=== PATIENT | male | born 1960 | race Caucasian/White ===

== ENCOUNTER 2018-11-22 23:39 | Emergency (ER) | payer OTHER ==
[2018-11-23] MEDS ORDERED: MORPHINE SULFATE 4 MG INJ IM ONE (01:10)
--- NOTE | 2018-11-23 01:19 | ERPHSYRPT ---
- History of Present Illness Time Seen by Provider: 11/23/18 01:12 Source: patient Exam Limitations: no limitations Patient Subjective Stated Complaint: PT STATES HE WAS WALKING DOG, DOG STARTED TRYING TO PLAY AND PT GOT TRIPPED UP, TWISTED LEFT ANKLE IN HOLE. C/O LEFT ANKLE PAIN Triage Nursing Assessment: PINK/WARM/DRY, RESP EASY, A&OX4, PT ABLE TO BEAR MINIMAL WEIGHT TO LEFT LEG WITH INTENSE PAIN. LEFT ANKLE SWOLLEN Physician History: 58-year-old white male arrives with complaint of pain in his left ankle symptoms since this evening. Patient states he stepped in a hole while walking his dog he has pain in his left ankle. Past medical history includes diabetes type 2, COPD, hypercholesterolemia, high blood pressure. Past surgical history is negative. Method of Injury: other (stepped in a hole and twisted left ankle), twisted Occurred: this evening Quality: constant Severity of Pain-Max: moderate Severity of Pain-Current: moderate Lower Extremities Pain: ankle: left Modifying Factors: Improves With: nothing Allergies/Adverse Reactions: No Known Drug Allergies Allergy (Unverified 11/22/18 23:57) Home Medications: Budesonide/Formoterol Fumarate [Symbicort 160-4.5 Mcg Inhaler] 1 puff IN DAILY 11/22/18 [History] Gabapentin 600 mg PO TID 11/22/18 [History] Lisinopril/Hydrochlorothiazide [Lisinopril-Hctz 20-25 mg Tab] 1 tab PO DAILY [History] Metformin HCl [Glucophage] 1,000 mg PO BID 11/22/18 [History] Simvastatin 20 mg PO DAILY 11/22/18 [History] Trazodone HCl 150 mg PO HS 11/22/18 [History] glipiZIDE [Glipizide] 5 mg PO BID 11/22/18 [History] Hx Tetanus, Diphtheria Vaccination/Date Given: No Hx Influenza Vaccination/Date Given: No Hx Pneumococcal Vaccination/Date Given: No Immunizations Up to Date: No - Review of Systems Constitutional: No Fever, No Chills Eyes: No Symptoms Ears, Nose, & Throat: No Symptoms Respiratory: No Cough, No Dyspnea Cardiac: No Chest Pain, No Edema, No Syncope Abdominal/Gastrointestinal: No Abdominal Pain, No Nausea, No Vomiting, No Diarrhea Genitourinary Symptoms: No Dysuria Musculoskeletal: Other (left ankle pain and swelling) Skin: No Rash Neurological: No Dizziness, No Focal Weakness, No Sensory Changes Psychological: No Symptoms Endocrine: No Symptoms All Other Systems: Reviewed and Negative - Past Medical History Pertinent Past Medical History: Yes Cardiac History: High Cholesterol, Hypertension Respiratory History: COPD Endocrine Medical History: Diabetes Type II - Past Surgical History Past Surgical History: No - Social History Smoking Status: Never smoker Exposure to second hand smoke: Yes Drug Use: none Patient Lives Alone: No - Nursing Vital Signs Nursing Vital Signs: Initial Vital Signs Temperature 97.8 F 11/23/18 00:01 Pulse Rate 78 11/23/18 00:01 Respiratory Rate 16 11/23/18 00:01 Blood Pressure 135/96 11/23/18 00:01 O2 Sat by Pulse Oximetry 96 11/23/18 00:01 Pain Scale Pain Intensity 10 - Physical Exam General Appearance: mild distress, alert Eyes, Ears, Nose, Throat Exam: moist mucous membranes Neck Exam: non-tender, supple Cardiovascular/Respiratory Exam: chest non-tender, normal breath sounds, regular rate/rhythm, no respiratory distress Gastrointestinal/Abdominal Exam: non-tender, guarding Back Exam: normal inspection, No vertebral tenderness Hips Exam: bilateral: non-tender, normal inspection, normal range of motion, no evidence of injury Legs Exam: bilateral leg: non-tender, normal inspection, normal range of motion , no evidence of injury Knees Exam: bilateral knee: non-tender, normal inspection, normal range of motion, no evidence of injury Ankle Exam: right ankle: non-tender, normal inspection, normal range of motion, no evidence of injury, left ankle: bone tenderness, soft tissue tenderness, swelling, other (left ankle moderate edema. Tenderness with palpation laterally , medially, posteriorly. Decreased range of motion left ankle secondary to pain , left dorsal pedal, posterior tibial pulses intact 2 over 4.good capillary refill all toes sensation intact all toes.) Foot Exam: bilateral foot: non-tender, normal inspection, normal range of motion , no evidence of injury DTR - Lower Extremities Exam: ankle (R): 2+, ankle (L): 2+ Neuro/Tendon Exam: normal sensation, normal motor functions Mental Status Exam: alert, oriented x 3, cooperative Skin Exam: normal color SpO2 Interpretation: normal (96%) SpO2: 96 - Course Nursing assessment & vital signs reviewed: Yes - Radiology Exams Left Ankle X-ray Interpretation: Interpreted by me (fractured distal left fibula, fracture left posterior distal tibia.) Ordered Tests: Active Orders 24 hr Category Date Time Status Crutches STAT Care 11/23/18 01:11 Active Splint STAT Care 11/23/18 01:11 Active ANKLE (3 VIEWS) Stat Exams 11/23/18 00:40 Taken Medication Summary Discontinued Medications Generic Name Dose Route Start Last Admin Trade Name Leopoldo PRN Reason Stop Dose Admin Morphine Sulfate 4 mg 11/23/18 01:10 Morphine Sulfate 4 Mg Inj IM 11/23/18 01:11 STAT ONE - Progress Progress: improved Progress Note: 11/23/18 01:17 58-year-old white male arrives with complaint of pain and swelling of his left ankle for approximately one and a half hours. Patient states he stepped in a hole twisting his left ankle he has pain laterally, medially and posterior to the left ankle. He has moderate edema. He has good capillary refill to all toes decreased range of motion to the left ankle secondary to pain left posterior tibial, posterior tibial pulses are intact 2 over 4. Sensation is intact to all toes. X-ray of the left ankle (my reading) fracture left distal fibula, fracture left distal posterior tibia. Ankle does not appear to be displaced. Will go ahead and have nurses apply a sugar tong and posterior splint place patient on crutches patient is given morphine 4 mg IM for pain will send patient home with Lorado for pain patient has been of requested follow-up with [facility] orthopedic bone and joint clinic tomorrow morning. He is to elevate his left ankle ice his left ankle crutches no weight bearing. . - Departure Departure Disposition: Home Clinical Impression: fracture left posterior distal tibia Fracture of fibula, distal, left, closed Qualifiers: Encounter type: initial encounter Fracture morphology: unspecified fracture morphology Qualified Code(s): S82.832A - Other fracture of upper and lower end of left fibula, initial encounter for closed fracture Condition: Fair Critical Care Time: No Referrals: JOSE CARLOS ROSS, [employer] [Primary Care Provider] - Instructions: Ankle Fracture (DC) Additional Instructions: Return home. Ice and elevate your left ankle 24-48 hours. Crutches no weight bearing. Lorado as prescribed. Follow-up with [facility] orthopedics bone and joint clinic tomorrow morning. Return for acute distress or for severe symptoms. Prescriptions: Hydrocodone/APAP 5-325 Tab^^^ [Lorado 5-325 Tablet^^^] 1 tab PO Q4HPRN PRN #12 tablet MDD 6 PRN Reason: left ankle pain
[2018-11-23] MEDS ORDERED: MORPHINE SULFATE 4 MG INJ ONE (02:03)
[2018-11-23 02:33] VITALS: BP 137/62; PULSE 72; O2SAT 97
--- NOTE | 2018-11-23 08:56 | XRAY ---
Indication: Pain following fall. Comparison: None 3 views of the left ankle demonstrates nondisplaced lateral malleolus oblique fracture and smaller nondisplaced posterior malleolus fracture with soft tissue swelling. Incidental cuboid accessory ossicle. No other bony, articular, or soft tissue abnormalities.
== END 2018-11-23 02:42 | disposition home or self-care (01) ==
LOC: ED 23:39
DX: S82.302A Unspecified fracture of lower end of left tibia, initial encounter for closed fracture (principal); X50.1XXA Overexertion from prolonged static or awkward postures, initial encounter; Y93.K1 Activity, walking an animal; S82.832A Other fracture of upper and lower end of left fibula, initial encounter for closed fracture; M79.605 Pain in left leg; M25.472 Effusion, left ankle; E11.9 Type 2 diabetes mellitus without complications; Z79.4 Long term (current) use of insulin; J44.9 Chronic obstructive pulmonary disease, unspecified; E78.00 Pure hypercholesterolemia, unspecified; I10 Essential (primary) hypertension; Z79.899 Other long term (current) drug therapy
CPT/HCPCS: 29515; 73610; 96372; 99284; J2270

== ENCOUNTER 2020-10-27 09:55 | Emergency (ER) | payer OTHER ==
[2020-10-27] MEDS ORDERED: XYLOCAINE 1% HCL 20 ML MDV IJ ONE (09:56)
[2020-10-27] MEDS ORDERED: Rocephin 1000 MG INJ IM ONE (10:08)
[2020-10-27 10:10] VITALS: BP 147/101; PULSE 92; O2SAT 96
[2020-10-27] MEDS ORDERED: Rocephin 1000 MG INJ ONE (10:11)
[2020-10-27] MEDS ORDERED: PEROXIDE 3% ONE (10:18)
[2020-10-27] MEDS ORDERED: BACIGUENT PACKET ONE (10:18)
--- NOTE | 2020-10-27 10:18 | ERPHSYRPT ---
- History of Present Illness Time Seen by Provider: 10/27/20 10:13 Source: patient Exam Limitations: no limitations Patient Subjective Stated Complaint: Pt began with an unknown spot (possible spider bite) to the base of the back of his head approx 10 days ago and pt has b een squeezing blood and puss out of it, open wound is approx 3 cm wide and the swollen reddened area is approx 10 cm wide Triage Nursing Assessment: Pt was brought to the ER by his neighbor, hypertensive, wound is draining, area is open and swollen, 3 cm open area and 10 cm total wide swollen and red area Physician History: Pt began with an unknown spot (possible spider bite) to the base of the back of his head approx 10 days ago and pt has been squeezing blood and puss out of it, open wound is approx 3 cm wide and the swollen reddened area is approx 10 cm wide Pt was brought to the ER by his neighbor, hypertensive, wound is draining, area is open and swollen, 3 cm open area and 10 cm total wide swollen and red area Denies fever, chills, no other area of wound Timing/Duration: day(s) (ten days) Severity: moderate Location: scalp Possible Causes: no cause identified Modifying Factors: Improves With: scratching Associated Symptoms: denies symptoms Allergies/Adverse Reactions: No Known Drug Allergies Allergy (Verified 10/27/20 10:10) Home Medications: Budesonide/Formoterol Fumarate [Symbicort 160-4.5 Mcg Inhaler] 1 puff IN DAILY 11/22/18 [History] Gabapentin 600 mg PO TID 11/22/18 [History] Lisinopril/Hydrochlorothiazide [Lisinopril-Hctz 20-25 mg Tab] 1 tab PO DAILY 11/22/18 [History] Metformin HCl [Glucophage] 1,000 mg PO BID 11/22/18 [History] Simvastatin 20 mg PO DAILY 11/22/18 [History] Trazodone HCl 150 mg PO HS 11/22/18 [History] glipiZIDE [Glipizide] 5 mg PO BID 11/22/18 [History] Hx Tetanus, Diphtheria Vaccination/Date Given: No Hx Influenza Vaccination/Date Given: No Hx Pneumococcal Vaccination/Date Given: No Travel Risk - International Travel Have you traveled outside of the country in past 3 weeks: No - Coronavirus Screening Are you exhibiting any of the following symptoms?: No Close contact with a COVID-19 positive Pt in past 14-21 Days: No - Review of Systems Constitutional: No Fever, No Chills Eyes: No Symptoms Ears, Nose, & Throat: No Symptoms Respiratory: No Cough, No Dyspnea Cardiac: No Chest Pain, No Edema, No Syncope Abdominal/Gastrointestinal: No Abdominal Pain, No Nausea, No Vomiting, No Diarrhea Genitourinary Symptoms: No Dysuria Musculoskeletal: No Back Pain, No Neck Pain Skin: Cellulitis, No Rash Neurological: No Dizziness, No Focal Weakness, No Sensory Changes Psychological: No Symptoms Endocrine: No Symptoms All Other Systems: Reviewed and Negative - Past Medical History Pertinent Past Medical History: Yes Cardiac History: High Cholesterol, Hypertension Respiratory History: COPD Endocrine Medical History: Diabetes Type II - Past Surgical History Past Surgical History: No - Social History Smoking Status: Never smoker Exposure to second hand smoke: Yes Drug Use: none Patient Lives Alone: Yes - Nursing Vital Signs Nursing Vital Signs: Initial Vital Signs Temperature 97.7 F 10/27/20 09:57 Pulse Rate 92 H 10/27/20 09:57 Blood Pressure 147/101 10/27/20 09:57 O2 Sat by Pulse Oximetry 96 10/27/20 09:57 Pain Scale Pain Intensity 8 - Physical Exam General Appearance: no apparent distress, alert Eye Exam: PERRL/EOMI, eyes nml inspection Ears, Nose, Throat Exam: normal ENT inspection, pharynx normal, moist mucous membranes Neck Exam: normal inspection, non-tender, supple, full range of motion Respiratory Exam: normal breath sounds, lungs clear, No respiratory distress Cardiovascular Exam: regular rate/rhythm, normal heart sounds Gastrointestinal/Abdomen Exam: soft, mass, No tenderness Back Exam: normal inspection, normal range of motion, No CVA tenderness, No vertebral tenderness Extremity Exam: normal inspection, normal range of motion Neurologic Exam: alert, oriented x 3, cooperative, normal mood/affect, sensation nml, No motor deficits Skin Exam: normal color, warm, dry, other (abscess at base of posterior scalp. open, purulent discharge) Lymphatic Exam: adenopathy (scalp) SpO2 Interpretation: normal SpO2: 96 O2 Delivery: Room Air - Course Nursing assessment & vital signs reviewed: Yes Ordered Tests: Active Orders 24 hr Category Date Time Status Wound Care STAT Care 10/27/20 10:09 Active Medication Summary Discontinued Medications Generic Name Dose Route Start Last Admin Trade Name Leopoldo PRN Reason Stop Dose Admin Ceftriaxone Sodium 1,000 mg 10/27/20 10:08 Rocephin 1000 Mg Inj IM 10/27/20 10:09 STAT ONE - Progress Progress: unchanged Counseled pt/family regarding: diagnosis, need for follow-up (with surgeon) - Departure Departure Disposition: Home Clinical Impression: Abscess of scalp Condition: Stable Critical Care Time: No Referrals: JOSE CARLOS ROSS NP [Primary Care Provider] - ZEE HARP MD [ASSOCIATE STAFF] - Instructions: Wound Infection, Skin Abscess Additional Instructions: Follow up with surgeon. Discharge/Care Plan ZENAIDA DANIELLE was seen on 10/27/20 in the Emergency Room. The patient was counseled regarding Diagnosis,Lab results, Imaging studies, need for follow up and when to return to the Emergency Room. Prescriptions given: Discharge Note I have spoken with the patient and/or caregivers. I have explained the patient's condition, diagnosis and treatment plan based on the information available to me at this time. I have answered the patient's and/or caregiver's questions and addressed any concerns. The patient and/or caregivers have as good understanding of the patient's diagnosis, condition and treatment plan as can be expected at this point. The vital signs have been stable. The patient's condition is stable and appropriate for discharge from the emergency department. The patient will pursue further outpatient evaluation with the primary care physician or other designated or consulting physician as outlined in the discharge instructions. The patient and/or caregivers are agreeable to this plan of care and follow-up instructions have been explained in detail. The patient and/or caregivers have received these instruction. The patient/and or caregivers are aware that any significant change in condition or worsening of symptoms should prompt an immediate return to this or the closest emergency department or call 911. Prescriptions: Levofloxacin [Levaquin 500 MG Tablet] 500 mg PO QAM #10 tablet
== END 2020-10-27 10:38 | disposition home or self-care (01) ==
LOC: ED 09:55
DX: L02.811 Cutaneous abscess of head [any part, except face] (principal)
CPT/HCPCS: 96372; 99283; J0696; A9270-GY

== ENCOUNTER 2022-03-01 09:43 | Emergency (ER) | payer OTHER ==
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
[2022-03-01] MEDS ORDERED: Adacel Vial IM ONE ×2 (10:48→10:51)
[2022-03-01 10:52] LABS: Absolute Neutrophil Ct (ANC) 8.47 x10^3/uL (1.4-6.9); Basophil (Absolute #) 0.06 x10^3/uL (0-0.4); Eosinophil % 3.6 % (0.00-5.0); Hematocrit 41.4 % (42-50); Hemoglobin 13.4 g/dL (12.5-18.0); Lymphocyte (Absolute #) 1.63 x10^3/uL (1.0-4.6); Lymphocytes % 14.5 % (24.0-44.0); Mean Cell Volume 95.2 fL (78-100); Mean Corpuscular Hemoglobin 30.8 pg (26-32); Mean Corpuscular Hgb Concent. 32.4 g/dL (32-36); Mean Platelet Volume 8.9 fL (7.5-11.0); Monocyte (Absolute #) 0.58 x10^3/uL (0.0-1.3); Monocytes % 5.2 % (0.0-12.0); Neutrophil % 75.6 % (36.0-66.0); Platelet Count 269 x10^3/uL (150-450); Red Blood Count 4.35 x10^6/uL (4.1-5.6); Red Cell Distribution Width 12.9 % (11.5-14.0); White Blood Count 11.2 x10^3/uL (4.0-10.5)
[2022-03-01 11:07] LABS: ALBUMIN 3.7 g/dL (3.5-5.0); ALKALINE PHOSPHATASE 180 U/L (38-126); ANION GAP 12.6 MEQ/L (5-15); BLOOD UREA NITROGEN 12 mg/dL (9-20); CHLORIDE 100 mmol/L (98-107); Calcium 8.7 mg/dL (8.4-10.2); Carbon Dioxide 28 mmol/L (22-30); Creatinine 1 0.65 mg/dL (0.66-1.25); EST GLOMERULAR FILTRATION RATE > 60.0 ML/MIN; Glucose 169 mg/dL (74-106); Potassium 4.2 mmol/L (3.5-5.1); SGOT/AST 22 U/L (17-59); SGPT/ALT 20 U/L (0-50); SODIUM 137 mmol/L (137-145); Total Protein 7.1 g/dL (6.3-8.2)
[2022-03-01] MEDS ORDERED: Rocephin 1000 MG INJ IM ONE (11:23)
[2022-03-01] MEDS ORDERED: XYLOCAINE 1% HCL 20 ML MDV ONE (11:24)
[2022-03-01] MEDS ORDERED: Rocephin 1000 MG INJ ONE (11:24)
[2022-03-01 11:37] VITALS: BP 160/110; PULSE 93
[2022-03-01 12:05] VITALS: O2SAT 98
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
== END 2022-03-01 11:37 | disposition home or self-care (01) ==
LOC: ED 09:43
DX: L03.116 Cellulitis of left lower limb (principal); Z91.19 Patient's noncompliance with other medical treatment and regimen; I10 Essential (primary) hypertension; S80.212A Abrasion, left knee, initial encounter; V18.0XXA Pedal cycle driver injured in noncollision transport accident in nontraffic accident, initial encounter; Y93.55 Activity, bike riding; E11.42 Type 2 diabetes mellitus with diabetic polyneuropathy; E78.5 Hyperlipidemia, unspecified; J44.9 Chronic obstructive pulmonary disease, unspecified; Z79.84 Long term (current) use of oral hypoglycemic drugs; Z79.899 Other long term (current) drug therapy; Z28.310 Unvaccinated for COVID-19
CPT/HCPCS: 36415; 73562; 80053; 83605; 85025; 90471; 90715; 96372; 99284; J0696

== ENCOUNTER 2022-10-13 17:37 | Observation (INO) | payer OTHER ==
--- NOTE | 2022-10-13 17:43 | ERPHSYRPT ---
<CHELSIE SAMPSON - Last Filed: 10/13/22 19:11> - History of Present Illness Time Seen by Provider: 10/13/22 17:43 Historian: patient Exam Limitations: no limitations Physician History: This is a 62-year-old white male patient who has a history of oxygen dependent COPD, diabetes, elevated cholesterol and hypertension. He also has a history of peripheral neuropathy. This patient has had 3 to 4-day history of chest pain, shortness of breath, productive cough with yellowish sputum as well as headache and body aches. Patient denies abdominal pain. He has had no nausea vomiting or diarrhea symptoms. Allergies/Adverse Reactions: No Known Drug Allergies Allergy (Verified 10/13/22 17:38) Home Medications: Budesonide/Formoterol Fumarate [Symbicort 160-4.5 Mcg Inhaler] 1 puff IN DAILY 11/22/18 [History] Gabapentin 800 mg PO TID 11/22/18 [History] Lisinopril/Hydrochlorothiazide [Lisinopril-Hctz 20-25 mg Tab] 1 tab PO DAILY 11/22/18 [History] Metformin HCl [Glucophage] 1,000 mg PO BID 11/22/18 [History] Simvastatin 20 mg PO DAILY 11/22/18 [History] Trazodone HCl 150 mg PO HS 11/22/18 [History] glipiZIDE [Glipizide] 5 mg PO BID 11/22/18 [History] Albuterol 2.5 mg/3 ml Neb [Proventil 2.5 mg/3 ml Neb] 2.5 mg IH DAILY PRN PRN 03/01/22 [History] Cyclobenzaprine HCl 10 mg [Cyclobenzaprine 10 MG] 10 mg PO DAILY 03/01/22 [History] Duloxetine HCl 30 mg [Cymbalta 30 MG Capsule] 30 mg PO DAILY 03/01/22 [History] Hx Tetanus, Diphtheria Vaccination/Date Given: Yes Hx Influenza Vaccination/Date Given: No Hx Pneumococcal Vaccination/Date Given: No Travel Risk - International Travel Have you traveled outside of the country in past 3 weeks: No - Coronavirus Screening Are you exhibiting any of the following symptoms?: Yes Symptoms: Fever, Cough: New Onset, Shortness of Breath, Headaches/Body Aches/Fatigue - Vaccine Status Have you recieved a Covid-19 vaccination: No - Past Medical History Pertinent Past Medical History: Yes Cardiac History: High Cholesterol, Hypertension Respiratory History: COPD Endocrine Medical History: Diabetes Type II Other Medical History: neuropathy - Past Surgical History Past Surgical History: No - Social History Smoking Status: Never smoker Exposure to second hand smoke: Yes Drug Use: none Patient Lives Alone: Yes Significant Family History: no pertinent family hx - Progress Progress Note: 10/13/22 19:11 This patient is signed out to Dr. Nicolas Negrete at shift change. He will follow-up on any work-up results and make final disposition. - Departure Departure Disposition: Observation Clinical Impression: Shortness of breath, Chest pain, Productive cough, Fever, exacerbation COPD, elevation trops trending down Condition: Stable Critical Care Time: No Referrals: JOSE CARLOS ROSS, ACCOUNT PROCESSOR [Primary Care Provider] - Follow up/PCP as directed <NICOLAS NEGRETE - Last Filed: 10/13/22 22:27> - History of Present Illness Historian: patient Exam Limitations: no limitations Physician History: Pt has Hx COPD and DM and has been SOBreath for 4 days and came to ER. Now has fever. elevated D dimer. Ordered CT PE , CBC CMPA, Resp Panel swabs, Lactate, Trop BNP D Dimer EKG after discussion risks /benefits with Pt, and he agrees and has capcity to make this c hoice. Chest with wheezes - discussed Tx with pt and he wishes to proceed with breathing Tx and Steroids and AB. Abd soft nontender wihtout peritoneal signs. Denies prior cardiac problems. requiring O2 in ER for low pulse Ox - no home O2. New requirement O2 in ER suspect COPD exacerbation. Pt taken over at change of shift from Dr. Sampson after consultation adn discussion of presentation and pending tests. Dr. Sampson provided independent interview source confirming above Hx. Timing/Duration: day(s) Activities at Onset: none Quality: fullness, pressure, tightness Location: central Chest Pain Radiation: no radiation Severity of Pain-Max: moderate Severity of Pain-Current: moderate Modifying Factors: Improves With: breathing, coughing, oxygen Associated Symptoms: shortness of breath, cough, hurts to breathe, fever Prior Chest Pain/Cardiac Workup: no prior chest pain Nitro Today/Relief: no nitro taken today Aspirin Treatment Today: 325 mg x 1, provided by ED - Review of Systems Constitutional: Fever, No Chills Eyes: No Symptoms Ears, Nose, & Throat: No Symptoms Respiratory: Cough, Dyspnea, Wheezing Cardiac: Chest Pain, No Edema, No Syncope Abdominal/Gastrointestinal: No Abdominal Pain, No Nausea, No Vomiting, No Diarrhea Genitourinary Symptoms: No Dysuria Musculoskeletal: No Back Pain, No Neck Pain Skin: No Rash Neurological: No Dizziness, No Focal Weakness, No Sensory Changes Psychological: No Symptoms Endocrine: No Symptoms Hematologic/Lymphatic: No Symptoms Immunological/Allergic: No Symptoms All Other Systems: Reviewed and Negative - Past Medical History Pertinent Past Medical History: Yes - Nursing Vital Signs Nursing Vital Signs: Initial Vital Signs Temperature 100.9 F 10/13/22 17:39 Pulse Rate 110 H 10/13/22 17:39 Blood Pressure 179/102 10/13/22 17:39 O2 Sat by Pulse Oximetry 87 L 10/13/22 17:39 Pain Scale Pain Intensity 8 - Physical Exam General Appearance: mild distress, alert Eye Exam: PERRL/EOMI, eyes nml inspection Ears, Nose, Throat Exam: normal ENT inspection, moist mucous membranes Neck Exam: normal inspection, non-tender, supple, full range of motion Respiratory Exam: normal breath sounds, lungs clear, No respiratory distress Cardiovascular Exam: regular rate/rhythm, normal heart sounds Gastrointestinal/Abdomen Exam: soft, No tenderness, No mass Rectal Exam: deferred Back Exam: normal inspection, No CVA tenderness, No vertebral tenderness Extremity Exam: normal inspection, normal range of motion Neurologic Exam: alert, oriented x 3, cooperative, normal mood/affect, sensation nml, No motor deficits Skin Exam: normal color, warm, dry SpO2 Interpretation: hypoxic SpO2: 87 O2 Delivery: Room Air - Course Nursing assessment & vital signs reviewed: Yes EKG Interpreted by Me: Sinus Rhythm, Sinus Tach, NORMAL AXIS, NORMAL INTERVALS, Non-specific ST Changes, Other (poor r wave progression) - CT Exams Chest CT Interpretation: Tele-radiologist Report, Other (No PE, patchy Infiltrates) Ordered Tests: Active Orders 24 hr Category Date Time Status Nutritional Health Coach STAT Care 10/13/22 17:44 Active EKG-ER Only STAT Care 10/13/22 17:44 Active IV Insertion STAT Care 10/13/22 17:44 Active Pulse Oximetry (ED) STAT Care 10/13/22 17:44 Active CHEST 1 VIEW (PORTABLE) Stat Exams 10/13/22 17:44 Taken CHEST WITH CONTRAST [CT] Stat Exams 10/13/22 18:54 Taken BNPII [NT PRO BNPII] Stat Lab 10/13/22 19:00 Completed CBC W DIFF Stat Lab 10/13/22 17:45 Completed CMP Stat Lab 10/13/22 17:45 Completed CULTURE,SPUTUM Stat Lab 10/13/22 Ordered D-DIMER QUANTITATIVE Stat Lab 10/13/22 17:45 Completed Lactic Acid Stat Lab 10/13/22 20:57 Completed MAGNESIUM Stat Lab 10/13/22 Completed Cole Screen Stat Lab 10/13/22 19:00 Completed PROTIME WITH INR Stat Lab 10/13/22 17:45 Completed TROPONIN Q4H Lab 10/13/22 17:45 Completed TROPONIN Q4H Lab 10/13/22 21:35 Completed TROPONIN Q4H Lab 10/14/22 01:45 Ordered Respiratory Therapy Assessment DAILY RT 10/13/22 20:45 Active Medication Summary Generic Name Dose Route Start Last Admin Trade Name Freq PRN Reason Stop Dose Admin Sodium Chloride 1,000 mls @ 100 mls/hr 10/13/22 19:15 10/13/22 19:37 Sodium Chloride 0.9% 1000 Ml IV 11/12/22 19:14 100 mls/hr .Q10H MARIELLE Administration Magnesium Sulfate/Water 2 gm in 50 mls @ 100 mls/hr 10/13/22 20:30 Magnesium Sulf 2 G/50 Ml Bag IV 10/14/22 20:59 Q30MIN MARIELLE Discontinued Medications Generic Name Dose Route Start Last Admin Trade Name Freq PRN Reason Stop Dose Admin Albuterol/Ipratropium 3 ml 10/13/22 20:16 10/13/22 20:46 Ipratropium/Albuterol Sulfate 3 Ml Ampul.Neb IH 10/13/22 20:17 3 ml STAT ONE Administration Albuterol/Ipratropium Confirm 10/13/22 20:43 Ipratropium/Albuterol Sulfate 3 Ml Ampul.Neb Administered 10/13/22 20:44 Dose 3 ml IH .STK-MED ONE Aspirin 324 mg 10/13/22 17:44 10/13/22 18:12 Aspirin 81 Mg Tab.Chew PO 10/13/22 17:45 324 mg STAT ONE Administration Methylprednisolone Sodium 0 mg 10/13/22 20:16 10/13/22 20:19 Succinate 125 mg/ Sterile IV 10/13/22 20:17 125 mg Water 2 ml STAT ONE Administration Ceftriaxone Sodium/Dextrose 1 g in 50 mls @ 100 mls/hr 10/13/22 20:18 10/13/22 21:37 Rocephin 1 Gm-D5w 50 Ml Bag IV 10/13/22 20:47 Infused STAT STA Infusion Ceftriaxone Sodium/Dextrose Confirm 10/13/22 20:52 Rocephin 1 Gm-D5w 50 Ml Bag Administered 10/13/22 20:53 Dose 1 g in 50 mls @ ud IV .STK-MED ONE Methylprednisolone Sodium Succinate Confirm 10/13/22 20:19 Methylprednis Sod Succ 125 Mg/2 Ml Vial Administered 10/13/22 20:20 Dose 125 mg .ROUTE .STK-MED ONE Morphine Sulfate 4 mg 10/13/22 20:23 10/13/22 20:56 Morphine Sulfate 4 Mg/Ml Injection IV 10/13/22 20:24 4 mg STAT ONE Administration Morphine Sulfate Confirm 10/13/22 20:52 Morphine Sulfate 4 Mg/Ml Injection Administered 10/13/22 20:53 Dose 4 mg .ROUTE .STK-MED ONE Nitroglycerin 0.4 mg 10/13/22 20:24 10/13/22 20:56 Nitroglycerin 0.4 Mg (Ed) 0.4 Mg Tab.Subl SL 10/13/22 20:25 0.4 mg STAT ONE Administration Nitroglycerin Confirm 10/13/22 20:51 Nitroglycerin 0.4 Mg (Ed) 0.4 Mg Tab.Subl Administered 10/13/22 20:52 Dose 0.4 mg SL .STK-MED ONE Sterile Water Confirm 10/13/22 20:19 Water For Injection,Sterile 10 Ml Vial Administered 10/13/22 20:20 Dose 10 ml IJ .STK-MED ONE Lab/Rad Data: Laboratory Result Diagrams 10/13/22 17:45 10/13/22 17:45 Laboratory Results 10/13/22 10/13/22 10/13/22 Range/Units Unknown 21:35 20:57 WBC (4.0-10.5) x10^3/uL RBC (4.1-5.6) x10^6/uL Hgb (12.5-18.0) g/dL Hct (42-50) % MCV (78-100) fL MCH (26-32) pg MCHC (32-36) g/dL RDW (11.5-14.0) % Plt Count (150-450) x10^3/uL MPV (7.5-11.0) fL Gran % (36.0-66.0) % Immature Gran % (Auto) (0.00-0.4) % Nucleat RBC Rel Count (0.00-0.1) % Eos # (Auto) (0-0.5) x10^3/uL Immature Gran # (Auto) (0.00-0.03) x10^3u/L Absolute Lymphs (auto) (1.0-4.6) x10^3/uL Absolute Monos (auto) (0.0-1.3) x10^3/uL Absolute Nucleated RBC (0.00-0.01) x10^3u/L Lymphocytes % (24.0-44.0) % Monocytes % (0.0-12.0) % Eosinophils % (0.00-5.0) % Basophils % (0.0-0.4) % Absolute Granulocytes (1.4-6.9) x10^3/uL Basophils # (0-0.4) x10^3/uL PT (9.4-12.5) SECONDS INR (0.8-3.0) D-Dimer (0.0-0.50) mg/L Sodium (137-145) mmol/L Potassium (3.5-5.1) mmol/L Chloride (98-107) mmol/L Carbon Dioxide (22-30) mmol/L Anion Gap (5-15) MEQ/L BUN (9-20) mg/dL Creatinine (0.66-1.25) mg/dL Estimated GFR ML/MIN Glucose (74-106) mg/dL Lactic Acid 1.8 (0.4-2.0) Calcium (8.4-10.2) mg/dL Magnesium 1.5 L (1.6-2.3) mg/dL Total Bilirubin (0.2-1.3) mg/dL AST (17-59) U/L ALT (0-50) U/L Alkaline Phosphatase (38-126) U/L Troponin I 0.013 (0.000-0.034) ng/mL NT-Pro-B Natriuret Pep (<300) pg/mL Serum Total Protein (6.3-8.2) g/dL Albumin (3.5-5.0) g/dL Monoscreen (Negative) Influenza Type A Ag (NEGATIVE) Influenza Type B Ag (NEGATIVE) RSV (PCR) (Negative) SARS-CoV-2 (PCR) (NEGATIVE) Group A Strep Antibody (NEGATIVE) 10/13/22 10/13/22 10/13/22 Range/Units 19:40 19:05 19:00 WBC (4.0-10.5) x10^3/uL RBC (4.1-5.6) x10^6/uL Hgb (12.5-18.0) g/dL Hct (42-50) % MCV (78-100) fL MCH (26-32) pg MCHC (32-36) g/dL RDW (11.5-14.0) % Plt Count (150-450) x10^3/uL MPV (7.5-11.0) fL Gran % (36.0-66.0) % Immature Gran % (Auto) (0.00-0.4) % Nucleat RBC Rel Count (0.00-0.1) % Eos # (Auto) (0-0.5) x10^3/uL Immature Gran # (Auto) (0.00-0.03) x10^3u/L Absolute Lymphs (auto) (1.0-4.6) x10^3/uL Absolute Monos (auto) (0.0-1.3) x10^3/uL Absolute Nucleated RBC (0.00-0.01) x10^3u/L Lymphocytes % (24.0-44.0) % Monocytes % (0.0-12.0) % Eosinophils % (0.00-5.0) % Basophils % (0.0-0.4) % Absolute Granulocytes (1.4-6.9) x10^3/uL Basophils # (0-0.4) x10^3/uL PT (9.4-12.5) SECONDS INR (0.8-3.0) D-Dimer (0.0-0.50) mg/L Sodium (137-145) mmol/L Potassium (3.5-5.1) mmol/L Chloride (98-107) mmol/L Carbon Dioxide (22-30) mmol/L Anion Gap (5-15) MEQ/L BUN (9-20) mg/dL Creatinine (0.66-1.25) mg/dL Estimated GFR ML/MIN Glucose (74-106) mg/dL Lactic Acid (0.4-2.0) Calcium (8.4-10.2) mg/dL Magnesium (1.6-2.3) mg/dL Total Bilirubin (0.2-1.3) mg/dL AST (17-59) U/L ALT (0-50) U/L Alkaline Phosphatase (38-126) U/L Troponin I (0.000-0.034) ng/mL NT-Pro-B Natriuret Pep 338 (<300) pg/mL Serum Total Protein (6.3-8.2) g/dL Albumin (3.5-5.0) g/dL Monoscreen (Negative) Influenza Type A Ag NEGATIVE (NEGATIVE) Influenza Type B Ag NEGATIVE (NEGATIVE) RSV (PCR) NEGATIVE (Negative) SARS-CoV-2 (PCR) NEGATIVE (NEGATIVE) Group A Strep Antibody NOT DETECTED (NEGATIVE) 10/13/22 10/13/22 10/13/22 Range/Units 19:00 17:45 17:45 WBC (4.0-10.5) x10^3/uL RBC (4.1-5.6) x10^6/uL Hgb (12.5-18.0) g/dL Hct (42-50) % MCV (78-100) fL MCH (26-32) pg MCHC (32-36) g/dL RDW (11.5-14.0) % Plt Count (150-450) x10^3/uL MPV (7.5-11.0) fL Gran % (36.0-66.0) % Immature Gran % (Auto) (0.00-0.4) % Nucleat RBC Rel Count (0.00-0.1) % Eos # (Auto) (0-0.5) x10^3/uL Immature Gran # (Auto) (0.00-0.03) x10^3u/L Absolute Lymphs (auto) (1.0-4.6) x10^3/uL Absolute Monos (auto) (0.0-1.3) x10^3/uL Absolute Nucleated RBC (0.00-0.01) x10^3u/L Lymphocytes % (24.0-44.0) % Monocytes % (0.0-12.0) % Eosinophils % (0.00-5.0) % Basophils % (0.0-0.4) % Absolute Granulocytes (1.4-6.9) x10^3/uL Basophils # (0-0.4) x10^3/uL PT 12.4 (9.4-12.5) SECONDS INR 1.15 (0.8-3.0) D-Dimer 0.69 H* (0.0-0.50) mg/L Sodium (137-145) mmol/L Potassium (3.5-5.1) mmol/L Chloride (98-107) mmol/L Carbon Dioxide (22-30) mmol/L Anion Gap (5-15) MEQ/L BUN (9-20) mg/dL Creatinine (0.66-1.25) mg/dL Estimated GFR ML/MIN Glucose (74-106) mg/dL Lactic Acid (0.4-2.0) Calcium (8.4-10.2) mg/dL Magnesium (1.6-2.3) mg/dL Total Bilirubin (0.2-1.3) mg/dL AST (17-59) U/L ALT (0-50) U/L Alkaline Phosphatase (38-126) U/L Troponin I 0.014 (0.000-0.034) ng/mL NT-Pro-B Natriuret Pep (<300) pg/mL Serum Total Protein (6.3-8.2) g/dL Albumin (3.5-5.0) g/dL Monoscreen NEGATIVE (Negative) Influenza Type A Ag (NEGATIVE) Influenza Type B Ag (NEGATIVE) RSV (PCR) (Negative) SARS-CoV-2 (PCR) (NEGATIVE) Group A Strep Antibody (NEGATIVE) 10/13/22 10/13/22 Range/Units 17:45 17:45 WBC 14.5 H (4.0-10.5) x10^3/uL RBC 4.92 (4.1-5.6) x10^6/uL Hgb 14.9 (12.5-18.0) g/dL Hct 45.5 (42-50) % MCV 92.5 (78-100) fL MCH 30.3 (26-32) pg MCHC 32.7 (32-36) g/dL RDW 13.5 (11.5-14.0) % Plt Count 200 (150-450) x10^3/uL MPV 10.0 (7.5-11.0) fL Gran % 86.9 H (36.0-66.0) % Immature Gran % (Auto) 0.5 H (0.00-0.4) % Nucleat RBC Rel Count 0.0 (0.00-0.1) % Eos # (Auto) 0.04 (0-0.5) x10^3/uL Immature Gran # (Auto) 0.07 H (0.00-0.03) x10^3u/L Absolute Lymphs (auto) 0.62 L (1.0-4.6) x10^3/uL Absolute Monos (auto) 1.13 (0.0-1.3) x10^3/uL Absolute Nucleated RBC 0.00 (0.00-0.01) x10^3u/L Lymphocytes % 4.3 L (24.0-44.0) % Monocytes % 7.8 (0.0-12.0) % Eosinophils % 0.3 (0.00-5.0) % Basophils % 0.2 (0.0-0.4) % Absolute Granulocytes 12.56 H (1.4-6.9) x10^3/uL Basophils # 0.03 (0-0.4) x10^3/uL PT (9.4-12.5) SECONDS INR (0.8-3.0) D-Dimer (0.0-0.50) mg/L Sodium 136 L (137-145) mmol/L Potassium 4.0 (3.5-5.1) mmol/L Chloride 97 L (98-107) mmol/L Carbon Dioxide 29 (22-30) mmol/L Anion Gap 13.3 (5-15) MEQ/L BUN 9 (9-20) mg/dL Creatinine 0.76 (0.66-1.25) mg/dL Estimated GFR > 60.0 ML/MIN Glucose 130 H (74-106) mg/dL Lactic Acid (0.4-2.0) Calcium 8.3 L (8.4-10.2) mg/dL Magnesium (1.6-2.3) mg/dL Total Bilirubin 0.90 (0.2-1.3) mg/dL AST 32 (17-59) U/L ALT 27 (0-50) U/L Alkaline Phosphatase 177 H (38-126) U/L Troponin I (0.000-0.034) ng/mL NT-Pro-B Natriuret Pep (<300) pg/mL Serum Total Protein 7.8 (6.3-8.2) g/dL Albumin 4.4 (3.5-5.0) g/dL Monoscreen (Negative) Influenza Type A Ag (NEGATIVE) Influenza Type B Ag (NEGATIVE) RSV (PCR) (Negative) SARS-CoV-2 (PCR) (NEGATIVE) Group A Strep Antibody (NEGATIVE) - Progress Progress: improved, re-examined Air Movement: good Progress Note: 10/13/22 22:23 Discussed results in consultation with Dr. Vernon and also the pt and all agree best to place pt in OBS on AB and trend trops. 10/13/22 22:25 New requirement for O2 and infiltrates consistent with exacerbation COPD - some elevated trops trending down CP resolving. Blood Culture(s) Obtained: No Antibiotics given: Yes Discussed with : Ese Counseled pt/family regarding: lab results, diagnosis, need for follow-up, rad results Medical Desision Making - Discussion of managment Care discussed with:: on-call "doc" Reviewed:: Test results, Need for additional workup Agreed on:: Treatment plan, need for follow-up Will see patient: in hospital - Social Determinants of Health Pt's dx & treatment plan are significantly limited by SDOH: financial hardships - Diagnostic Testing Diagnostic test were ordered, analyzed, and reviewed by me: Yes Radiological Interpretation: Reviewed by me, Teleradiologist Report - Departure Departure Disposition: Observation Critical Care Time: No
[2022-10-13] MEDS ORDERED: BABY ASPIRIN 81 MG CHEW PO ONE (17:44)
[2022-10-13 18:01] LABS: Absolute Neutrophil Ct (ANC) 12.56 x10^3/uL (1.4-6.9); BASOPHIL % 0.2 % (0.0-0.4); Basophil (Absolute #) 0.03 x10^3/uL (0-0.4); Eosinophil % 0.3 % (0.00-5.0); Eosinophil (Absolute #) 0.04 x10^3/uL (0-0.5); Hematocrit 45.5 % (42-50); Hemoglobin 14.9 g/dL (12.5-18.0); IMMATURE GRAN # 0.07 x10^3u/L (0.00-0.03); IMMATURE GRAN % 0.5 % (0.00-0.4); Lymphocyte (Absolute #) 0.62 x10^3/uL (1.0-4.6); Lymphocytes % 4.3 % (24.0-44.0); Mean Cell Volume 92.5 fL (78-100); Mean Corpuscular Hemoglobin 30.3 pg (26-32); Mean Corpuscular Hgb Concent. 32.7 g/dL (32-36); Monocyte (Absolute #) 1.13 x10^3/uL (0.0-1.3); Monocytes % 7.8 % (0.0-12.0); Neutrophil % 86.9 % (36.0-66.0); Platelet Count 200 x10^3/uL (150-450); Red Blood Count 4.92 x10^6/uL (4.1-5.6); Red Cell Distribution Width 13.5 % (11.5-14.0); White Blood Count 14.5 x10^3/uL (4.0-10.5)
[2022-10-13 18:15] LABS: ALBUMIN 4.4 g/dL (3.5-5.0); ALKALINE PHOSPHATASE 177 U/L (38-126); ANION GAP 13.3 MEQ/L (5-15); BLOOD UREA NITROGEN 9 mg/dL (9-20); CHLORIDE 97 mmol/L (98-107); Calcium 8.3 mg/dL (8.4-10.2); Carbon Dioxide 29 mmol/L (22-30); Creatinine 1 0.76 mg/dL (0.66-1.25); EST GLOMERULAR FILTRATION RATE > 60.0 ML/MIN; Glucose 130 mg/dL (74-106); SGOT/AST 32 U/L (17-59); SGPT/ALT 27 U/L (0-50); SODIUM 136 mmol/L (137-145); Total Protein 7.8 g/dL (6.3-8.2)
[2022-10-13 18:21] LABS: INR 1.15 (0.8-3.0); PROTIME 12.4 SECONDS (9.4-12.5)
[2022-10-13 18:25] LABS: D-DIMER QUANTITATIVE 0.69 mg/L (0.0-0.50)
[2022-10-13] MEDS ORDERED: HOLD METFORMIN PRODUCTS FOR 48 HOURS MC SCH (19:27)
[2022-10-13] MEDS: Sodium Chloride 0.9% 1000 ML 1,000 ML IV SCH (19:37)
[2022-10-13 19:47] LABS: INFLUENZA A NEGATIVE (NEGATIVE); INFLUENZA B NEGATIVE (NEGATIVE); RESPIRATORY SYNCTIAL VIRUS NEGATIVE (Negative); SARS-CoV-2 Xpert Express NEGATIVE (NEGATIVE)
[2022-10-13] MEDS ORDERED: solu-MEDROL 125 MG, Sterile H2O 10 ml 2 ML IV ONE ×2 (20:16)
[2022-10-13] MEDS ORDERED: DUONEB 0.5-3 MG/3 ml Neb IH ONE ×2 (20:16→20:43)
[2022-10-13] MEDS ORDERED: ROCEPHIN 1 Gm-D5w 50 ml Bag** 1 G/50 ML IVPB IV STA (20:18)
[2022-10-13] MEDS ORDERED: solu-MEDROL ONE (20:19)
[2022-10-13] MEDS ORDERED: Sterile H2O 10 ml IJ ONE (20:19)
[2022-10-13] MEDS ORDERED: MORPHINE SULFATE 4 MG INJ IV ONE (20:23)
[2022-10-13] MEDS ORDERED: Nitrostat 0.4 MG (ED) SL ONE ×2 (20:24→20:51)
[2022-10-13] MEDS ORDERED: MORPHINE SULFATE 4 MG INJ ONE (20:52)
[2022-10-13] MEDS ORDERED: ROCEPHIN 1 Gm-D5w 50 ml Bag** 1 G/50 ML IVPB IV ONE (20:52)
[2022-10-13] MEDS ORDERED: TYLENOL 325 MG PO PRN (23:03)
[2022-10-13] MEDS ORDERED: Senokot-S Tablet PO PRN (23:03)
[2022-10-13] MEDS ORDERED: DUONEB 0.5-3 MG/3 ml Neb IH SCH (23:03)
[2022-10-13] MEDS ORDERED: MILK OF MAGNESIA 30 ML PO PRN (23:03)
[2022-10-13] MEDS ORDERED: Zofran 4 MG/2 ML VIAL IV PRN (23:03)
[2022-10-13] MEDS ORDERED: MAALOX ES 30 ML UNIT DOSE PO PRN (23:03)
[2022-10-13] MEDS: MAGNESIUM SULF 2 G/50 ML BAG 2 GM/50 ML PIGGYBACK IV SCH (23:47)
[2022-10-14] MEDS ORDERED: solu-MEDROL ONE ×2 (01:15→05:32)
[2022-10-14] MEDS ORDERED: Sterile H2O 10 ml IJ ONE ×2 (01:16→05:32)
[2022-10-14] MEDS: MAGNESIUM SULF 2 G/50 ML BAG 2 GM/50 ML PIGGYBACK IV SCH (01:17)
[2022-10-14] MEDS: solu-MEDROL 60 MG, Sterile H2O 10 ml 2 ML IV SCH ×8 (01:17→17:01)
[2022-10-14 02:14] LABS: Hematocrit 43.6 % (42-50); Mean Cell Volume 93.8 fL (78-100); Mean Corpuscular Hemoglobin 30.1 pg (26-32); Mean Corpuscular Hgb Concent. 32.1 g/dL (32-36); Platelet Count 174 x10^3/uL (150-450); Red Blood Count 4.65 x10^6/uL (4.1-5.6); Red Cell Distribution Width 13.6 % (11.5-14.0); White Blood Count 18.1 x10^3/uL (4.0-10.5)
[2022-10-14 02:42] LABS: ALBUMIN 3.6 g/dL (3.5-5.0); ALKALINE PHOSPHATASE 135 U/L (38-126); ANION GAP 11.8 MEQ/L (5-15); BLOOD UREA NITROGEN 13 mg/dL (9-20); CHLORIDE 95 mmol/L (98-107); Calcium 7.9 mg/dL (8.4-10.2); Carbon Dioxide 32 mmol/L (22-30); Cholesterol 109 mg/dL (50-200); Creatinine 1 0.75 mg/dL (0.66-1.25); EST GLOMERULAR FILTRATION RATE > 60.0 ML/MIN; Glucose 264 mg/dL (74-106); HDL CHOLESTEROL 40 mg/dL (40-60); LDL, DIRECT 58 mg/dL (30-100); MAGNESIUM 1.8 mg/dL (1.6-2.3); Potassium 4.2 mmol/L (3.5-5.1); Risk Ratio 2.7; SGOT/AST 24 U/L (17-59); SGPT/ALT 23 U/L (0-50); SODIUM 134 mmol/L (137-145); TRIGLYCERIDE 47 mg/dL (30-150); Total Protein 6.5 g/dL (6.3-8.2)
[2022-10-14] MEDS: DUONEB 0.5-3 MG/3 ml Neb IH SCH ×4 (06:29→18:07)
[2022-10-14] MEDS: Advair Hfa 230/21 Mcg COMMON CANISTER IH SCH ×2 (06:32→18:14)
[2022-10-14] MEDS: Sodium Chloride 0.9% 1000 ML 1,000 ML IV SCH ×2 (07:44→20:23)
[2022-10-14] MEDS: HUMULIN R SQ PRN ×4 (07:55→20:04)
--- NOTE | 2022-10-14 08:39 | XRAY ---
Indication: Short of breath. Comparison: July 06, 2007 Portable chest less inflated with new mild patchy left lung and lesser degree right base airspace disease. No large effusion. Heart not enlarged. Bony thorax intact.
--- NOTE | 2022-10-14 08:39 | XRAY ---
Indication: Chest/back pain. Short of breath. Elevated d-dimer. Multiple contiguous axial images obtained through the chest using 80 cc Isovue 370 contrast and PE protocol. Comparison: None Adequate opacification of the pulmonary arteries. However diffuse respiration artifact limits evaluation for pulmonary embolus. No obvious central pulmonary embolus. Heart borderline enlarged. Aorta is normal in course and caliber. Small left perihilar calcified nodes. No pathologic mediastinal/hilar lymphadenopathy. Lungs demonstrates mild diffuse bilateral patchy airspace disease, greatest left lower lobe. No effusion. Small left base calcified granuloma. Bony thorax intact with mild degenerative changes throughout the spine. Limited upper abdomen demonstrates fatty liver. Impression: 1. Pulmonary embolus evaluation limited by diffuse respiration artifact. No obvious pulmonary embolus. 2. Mild diffuse bilateral patchy airspace disease. 3. Chronic findings including degenerative spondylosis, fatty liver, and old granulomatous disease.
[2022-10-14] MEDS: Pepcid 20 MG VIAL IV SCH ×2 (09:21→21:49)
[2022-10-14] MEDS: Ecotrin 325 MG PO SCH (09:22)
[2022-10-14] MEDS: Zestril 20 MG*** 20 MG, hydroDIURIL 25 MG*** 25 MG PO SCH ×2 (09:22)
[2022-10-14] MEDS: Neurontin PO SCH ×3 (09:25→21:49)
[2022-10-14] MEDS ORDERED: Zithromax 500 MG/ 250 ML NaCl Premix 500 MG/250 ML IVPB IV SCH (10:00)
[2022-10-14] MEDS: Singulair 10 MG PO SCH (21:49)
[2022-10-14] MEDS: Cymbalta 30 MG Capsule PO SCH (21:49)
[2022-10-14] MEDS: Desyrel 150 MG PO SCH (21:49)
[2022-10-14] MEDS: Cyclobenzaprine 10 MG PO SCH (21:49)
[2022-10-14] MEDS ORDERED: ROCEPHIN 1 Gm-D5w 50 ml Bag** 1 G/50 ML IVPB IV SCH (22:00)
[2022-10-15] MEDS: solu-MEDROL 60 MG, Sterile H2O 10 ml 2 ML IV SCH ×4 (01:03→06:21)
[2022-10-15] MEDS: DUONEB 0.5-3 MG/3 ml Neb IH SCH ×4 (05:12→18:30)
[2022-10-15] MEDS: Advair Hfa 230/21 Mcg COMMON CANISTER IH SCH ×2 (05:14→18:40)
[2022-10-15] MEDS: Sodium Chloride 0.9% 1000 ML 1,000 ML IV SCH (08:38)
[2022-10-15] MEDS ORDERED: Zithromax 250 MG TABLET PO ONE (08:41)
--- NOTE | 2022-10-15 09:25 | XRAY ---
Indication: COPD exacerbation. Comparison: October 13, 2022 Portable chest demonstrates grossly stable bilateral patchy airspace disease again without large effusion. Heart not enlarged. No new cardiopulmonary abnormalities.
[2022-10-15] MEDS: Ecotrin 325 MG PO SCH (10:28)
[2022-10-15] MEDS: Pepcid 20 MG VIAL IV SCH ×2 (10:29→22:30)
[2022-10-15] MEDS: Zestril 20 MG*** 20 MG, hydroDIURIL 25 MG*** 25 MG PO SCH ×2 (10:29)
[2022-10-15] MEDS: DELTASONE 20 MG PO SCH (10:29)
[2022-10-15] MEDS: Neurontin PO SCH ×3 (10:29→22:30)
[2022-10-15] MEDS: HUMULIN R SQ PRN ×2 (10:33→16:58)
[2022-10-15] MEDS: Desyrel 150 MG PO SCH (22:30)
[2022-10-15] MEDS: Cymbalta 30 MG Capsule PO SCH (22:30)
[2022-10-15] MEDS: Singulair 10 MG PO SCH (22:30)
[2022-10-15] MEDS: Cyclobenzaprine 10 MG PO SCH (22:30)
[2022-10-16] MEDS: Sodium Chloride 0.9% 1000 ML 1,000 ML IV SCH (00:11)
[2022-10-16 04:51] LABS: Hematocrit 39.8 % (42-50); Hemoglobin 12.7 g/dL (12.5-18.0); Mean Corpuscular Hemoglobin 29.7 pg (26-32); Mean Corpuscular Hgb Concent. 31.9 g/dL (32-36); Platelet Count 209 x10^3/uL (150-450); Red Blood Count 4.28 x10^6/uL (4.1-5.6); Red Cell Distribution Width 13.4 % (11.5-14.0); White Blood Count 13.1 x10^3/uL (4.0-10.5)
[2022-10-16 05:45] LABS: ANION GAP 5.7 MEQ/L (5-15); BLOOD UREA NITROGEN 22 mg/dL (9-20); CHLORIDE 97 mmol/L (98-107); Calcium 8.1 mg/dL (8.4-10.2); Carbon Dioxide 39 mmol/L (22-30); Creatinine 1 0.64 mg/dL (0.66-1.25); EST GLOMERULAR FILTRATION RATE > 60.0 ML/MIN; Glucose 161 mg/dL (74-106); Potassium 3.3 mmol/L (3.5-5.1); SODIUM 139 mmol/L (137-145)
[2022-10-16 06:29] LABS: Lymphocytes 9 % (24-44); Monocyte 4 % (0.0-12.0); Neutrophils 87 % (36.-66.); Total Cells Counted 100; Toxic Granulation 2+
[2022-10-16 06:30] LABS: Platelet Estimate NORMAL (NORMAL)
[2022-10-16] MEDS: DUONEB 0.5-3 MG/3 ml Neb IH SCH ×2 (06:45→10:35)
[2022-10-16] MEDS: Advair Hfa 230/21 Mcg COMMON CANISTER IH SCH (06:45)
[2022-10-16] MEDS: Neurontin PO SCH (08:36)
[2022-10-16] MEDS: Ecotrin 325 MG PO SCH (08:36)
[2022-10-16] MEDS: Pepcid 20 MG VIAL IV SCH (08:36)
[2022-10-16] MEDS: Zestril 20 MG*** 20 MG, hydroDIURIL 25 MG*** 25 MG PO SCH ×2 (08:37)
[2022-10-16] MEDS: DELTASONE 20 MG PO SCH (08:39)
[2022-10-16] MEDS ORDERED: Zithromax 250 MG TABLET PO SCH (10:00)
[2022-10-16 11:47] VITALS: BP 138/90; PULSE 78; O2SAT 94
[2022-10-16] MEDS: HUMULIN R SQ PRN (11:55)
--- NOTE | 2022-10-16 12:53 | PCM.CONS ---
Podiatry HPI - Consult Date of Consultation Date: 10/16/22 Reason for Consult: Heel ulcerations, Ankle swelling. Consulting Provider: JEFRY MOLINA DPM - [facility] History of Present Illness: is a José Luis is a very pleasant 62-year-old male who presents With admission for exacerbation of COPD and pneumonia Consulted to my service for complaints of heel ulcerations to the bilateral lower extremity. He indicates to the left lower extremity this has been present for over 1 year. To the right lower extremity it is only been present for 3 months. They are symmetrical in location. Patient indicates that he has no constitutional symptoms of infection at this time. Patient does endorse a history of an ankle fracture that occurred in November 2018. He indicates that he was supposed to see a provider out in [place] for this issue however has never followed through. He does have a bit of ankle swelling today which causes him some pain however he is neuropathic. This is secondary to diabetes mellitus. Medications & Allergies Home Medications: Home Medication List Budesonide/Formoterol Fumarate [Symbicort 160-4.5 Mcg Inhaler] 1 puff IN DAILY 11/22/18 [History Confirmed 10/13/22] Gabapentin 800 mg PO TID 11/22/18 [History Confirmed 10/13/22] RX: Lisinopril/Hydrochlorothiazide [Lisinopril-Hctz 20-25 mg Tab] 1 tab PO DAILY 11/22/18 [History Confirmed 10/13/22] RX: Metformin HCl [Glucophage] 1,000 mg PO BID 11/22/18 [History Confirmed 10/13/22] RX: Trazodone HCl 150 mg PO HS 11/22/18 [History Confirmed 10/13/22] Simvastatin 20 mg PO DAILY 11/22/18 [History Confirmed 10/13/22] glipiZIDE [Glipizide] 5 mg PO BID 11/22/18 [History Confirmed 10/13/22] Cyclobenzaprine HCl 10 mg [Cyclobenzaprine 10 MG] 10 mg PO DAILY 03/01/22 [History Confirmed 10/13/22] Duloxetine HCl 30 mg [Cymbalta 30 MG Capsule] 30 mg PO DAILY 03/01/22 [History Confirmed 10/13/22] RX: Albuterol 2.5 mg/3 ml Neb [Proventil 2.5 mg/3 ml Neb] 2.5 mg IH DAILY PRN PRN 03/01/22 [History Confirmed 10/13/22] Amox Tr/Potass Clav. 875 mg [Augmentin 875-125 Tablet] 875 mg PO BID 10 Days #20 tablet 10/16/22 [Rx] Azithromycin [Azithromycin 250 mg Pack] 250 mg PO UD #6 tablet 10/16/22 [Rx] Methylprednisolone Packet [Medrol Dosepack] 0 mg PO UD #1 packet 10/16/22 [Rx] Allergies/Adverse Reactions: Allergies Allergy/AdvReac Type Severity Reaction Status Date / Time No Known Drug Allergies Allergy Verified 10/13/22 17:38 - Past Medical History Past Medical History: Yes Cardiac History: High Cholesterol, Hypertension Respiratory History: COPD Endocrine Medical History: Diabetes Type II Pyscho-Social History: Anxiety, Bipolar, Depression, Panic Disorder Comment: neuropathy - Past Surgical History Past Surgical History: No Neuro Surgical History: No Pertinent History Cardiac History: No Pertinent History Respiratory Surgery: No Pertinent History GI Surgical History: No Pertinent History Genitourinary Surgical Hx: No Pertinent History Musculskeletal Surgical Hx: No Pertinent History Male Surgical History: No Pertinent History - Social History Smoking Status: Never smoker Exposure to second hand smoke: Yes Alcohol: None Drug Use: none Significant Family History: no pertinent family hx Physical Exam - General General Appearance: no apparent distress - Neuro Neurologic: Epicritic and protopathic (absent) - Vascular Peripheral Pulses: Posterior tibialis: 2+, Dorsalis-Pedis: 2+ Capillary Refill Time: < 3 seconds Hair Growth: Symmetrical and Bilateral Edema: None Edema Degree: 2+ Skin: Supple, not atrophic Skin Temperature: Warm to touch - Muscular Muscle Strength: 5/5 on all 4 quadrants Digital Deformity: no digital deformities - Narrative Narrative Physical Exam: Podiatry Physical Exam Results - Labs Lab/Micro Results: Lab Results-Last 24 Hours 10/15/22 10/15/22 10/16/22 Range/Units 16:20 20:42 04:51 WBC 13.1 H (4.0-10.5) x10^3/uL RBC 4.28 (4.1-5.6) x10^6/uL Hgb 12.7 (12.5-18.0) g/dL Hct 39.8 L (42-50) % MCV 93.0 (78-100) fL MCH 29.7 (26-32) pg MCHC 31.9 L (32-36) g/dL RDW 13.4 (11.5-14.0) % Plt Count 209 (150-450) x10^3/uL MPV 10.0 (7.5-11.0) fL Segmented Neutrophils 87 H (36.-66.) % Lymphocytes (Manual) 9 L (24-44) % Monocytes (Manual) 4 (0.0-12.0) % Toxic Granulation 2+ Platelet Estimate NORMAL (NORMAL) RBC Morphology NORMAL Sodium (137-145) mmol/L Potassium (3.5-5.1) mmol/L Chloride (98-107) mmol/L Carbon Dioxide (22-30) mmol/L Anion Gap (5-15) MEQ/L BUN (9-20) mg/dL Creatinine (0.66-1.25) mg/dL Estimated GFR ML/MIN Glucose (74-106) mg/dL POC Glucometer 361 H 340 H (74 to 106) mg/dL Calcium (8.4-10.2) mg/dL 10/16/22 10/16/22 10/16/22 Range/Units 04:51 06:52 11:10 WBC (4.0-10.5) x10^3/uL RBC (4.1-5.6) x10^6/uL Hgb (12.5-18.0) g/dL Hct (42-50) % MCV (78-100) fL MCH (26-32) pg MCHC (32-36) g/dL RDW (11.5-14.0) % Plt Count (150-450) x10^3/uL MPV (7.5-11.0) fL Segmented Neutrophils (36.-66.) % Lymphocytes (Manual) (24-44) % Monocytes (Manual) (0.0-12.0) % Toxic Granulation Platelet Estimate (NORMAL) RBC Morphology Sodium 139 (137-145) mmol/L Potassium 3.3 L (3.5-5.1) mmol/L Chloride 97 L (98-107) mmol/L Carbon Dioxide 39 H (22-30) mmol/L Anion Gap 5.7 (5-15) MEQ/L BUN 22 H (9-20) mg/dL Creatinine 0.64 L (0.66-1.25) mg/dL Estimated GFR > 60.0 ML/MIN Glucose 161 H (74-106) mg/dL POC Glucometer 123 H 168 H (74 to 106) mg/dL Calcium 8.1 L (8.4-10.2) mg/dL Accuchecks Date 10/16/22 Date 10/16/22 Date 10/15/22 Date 10/15/22 Time 20:45 Time 16:39 - Radiology Impressions Radiology Exams & Impressions: Radiology Procedures Category Date Time Status CHEST 1 VIEW (PORTABLE) Routine Exams 10/15/22 08:45 Completed - Other Procedures and Tests Respiratory Therapy 10/17/22 05:00 EKG DAILY Assessment/Plan (1) Peripheral neuropathy Current Visit: Yes Status: Acute Code(s): G62.9 - POLYNEUROPATHY, UNSPECIFIED (2) Diabetes mellitus Current Visit: Yes Status: Acute Code(s): E11.9 - TYPE 2 DIABETES MELLITUS WITHOUT COMPLICATIONS (3) Diabetic foot ulcer associated with type 2 diabetes mellitus Current Visit: Yes Status: Acute Assessment & Plan: Initial patient examination evaluation. Radiographs reviewed from 2020 demonstrating Charcot versus septic ankle to the left lower extremity. Discussion with patient and patient would like to follow- up in regards to this issue on outpatient however he does experience significant instability of the left lower extremity. Patient was supposed to see a provider out in [place] however has never made the follow-up since his injury 4 years ago. Patient does have ulcerations to the bilateral heels. Ulcer Debridement: Attention was directed to the open wound right heel. Verbal consent was obtained prior to the procedure. Sharp, excisional debridement was performed of the right heel ulcer utilizing a loop curette. Removal of nonviable tissue was performed with the debridement: fibrotic and necrotic tissue Depth of debridement: skin and subcutaneous tissue. Hemostasis was obtained a using pressure dressing. Pre- and post- debridement measurements as follows: Pre-Debridement: Size - 3.1 x 0.5 x 0.2 with hyperkeratotic rim Post-Debridement: Size - 3.4 x 1.7 x 0.3 Attention was directed to the open wound left heel. Verbal consent was obtained prior to the procedure. Sharp, excisional debridement was performed of the left heel ulcer utilizing a loop curette. Removal of nonviable tissue was performed with the debridement: fibrotic and necrotic tissue Depth of debridement: skin and subcutaneous tissue. Hemostasis was obtained a using pressure dressing. Pre- and post- debridement measurements as follows: Pre-Debridement: Size - 2.8x 1.6 x 0.2 Post-Debridement: Size - 3.4 x 1.9 x 0.3 HHC for dressing changes Orders provided. Cultures obtained Follow up as indicated. Code(s): E11.621 - TYPE 2 DIABETES MELLITUS WITH FOOT ULCER; L97.509 - NON- PRESSURE CHRONIC ULCER OTH PRT UNSP FOOT W UNSP SEVERITY (4) Charcot's joint, left ankle and foot Current Visit: Yes Status: Acute Code(s): M14.672 - CHARCOT'S JOINT, LEFT ANKLE AND FOOT (5) Septic arthritis Current Visit: Yes Status: Acute (6) Fracture of fibula, distal, left, closed Current Visit: No Status: Acute Qualifiers: Encounter type: initial encounter Fracture morphology: unspecified fracture morphology Qualified Code(s): S82.832A - Other fracture of upper and lower end of left fibula, initial encounter for closed fracture Code(s): S82.832A - OTH FRACTURE OF UPPER AND LOWER END OF LEFT FIBULA, INIT
== END 2022-10-16 12:43 | disposition home health service (06) ==
LOC: ED 17:37 → MED SURG 22:55
PROVIDERS: ADMIT Family Medicine; ATTEND Family Medicine
DX: J44.1 Chronic obstructive pulmonary disease with (acute) exacerbation (principal); J18.9 Pneumonia, unspecified organism; E78.5 Hyperlipidemia, unspecified; I10 Essential (primary) hypertension; G62.9 Polyneuropathy, unspecified; E11.621 Type 2 diabetes mellitus with foot ulcer; L89.629 Pressure ulcer of left heel, unspecified stage; L89.619 Pressure ulcer of right heel, unspecified stage; M14.672 Charcot's joint, left ankle and foot; S82.832A Other fracture of upper and lower end of left fibula, initial encounter for closed fracture; Z79.899 Other long term (current) drug therapy; Z99.81 Dependence on supplemental oxygen; Z20.828 Contact with and (suspected) exposure to other viral communicable diseases
CPT/HCPCS: 0241U; 11042; 36000; 36415; 71045; 71260; 80048; 80053; 80061; 82947; 83036; 83605; 83721; 83735; 83880; 84484; 85025; 85027; 85379; 85610; 86308; 87070; 87077; 87186; 87651; 93005; 93041; 93268; 94640; 94760; 96365; 96374; 96375; 99223; 99284; G0378; J0456; J0696; J1815; J2270; J2930; A9270-GY; J3475

== ENCOUNTER 2024-04-11 17:15 | Emergency (ER) | payer OTHER ==
[2024-04-11 17:28] VITALS: TEMP 97.1
[2024-04-11] MEDS: DUONEB 0.5-3 MG/3 ml Neb IH ONE (18:06)
[2024-04-11] MEDS: solu-MEDROL 125 MG, Sterile H2O 10 ml 2 ML IV ONE (18:06)
[2024-04-11] MEDS ORDERED: Norflex 60 MG/2 ML ONE ×2 (18:08→18:10)
[2024-04-11] MEDS: Norflex 60 MG/2 ML IV ONE (18:11)
[2024-04-11 18:17] LABS: Hematocrit 36.7 % (40.1-51.0); Hemoglobin 12.6 g/dL (13.7-17.5); Mean Cell Volume 92.9 fL (79.0-92.2); Mean Corpuscular Hemoglobin 31.9 pg (25.7-32.2); Mean Corpuscular Hgb Concent. 34.3 g/dL (32.3-36.5); Mean Platelet Volume 10.6 fL (9.4-12.4); Platelet Count 230 x10^3/uL (163-337); Red Blood Count 3.95 x10^6/uL (4.63-6.08); Red Cell Distribution Width 13.5 % (11.6-14.4); White Blood Count 6.8 x10^3/uL (4.23-9.07)
[2024-04-11 18:30] LABS: ALBUMIN 3.2 g/dL (3.5-5.0); ANION GAP 31.1 MEQ/L (5-15); BILIRUBIN,TOTAL 1.1 mg/dL (0.2-1.3); Creatinine 1 9.25 mg/dL (0.66-1.25); EST GLOMERULAR FILTRATION RATE 5.9 ML/MIN; MAGNESIUM 2.1 mg/dL (1.6-2.3); Potassium 4.5 mmol/L (3.5-5.1); Total Protein 5.7 g/dL (6.3-8.2)
[2024-04-11 18:43] LABS: BAND 9 % (0.0-2.0); Total Cells Counted 100
[2024-04-11 18:44] LABS: Metamyelocyte 1 %; Platelet Estimate NORMAL (NORMAL)
[2024-04-11 18:57] LABS: VBG CARBOXYHEMOGLOBIN 2.5 % T HGB (0.0-6.9); VBG HCO3- 20.2 meq/L (22-28); VBG HEMOGLOBIN 13.3; VBG POTASSIUM 4.8 (3.5-5.1); VBG pH 7.25 (7.32-7.42)
[2024-04-11] MEDS ORDERED: Sodium Chloride 0.9% 1000 ML 2,000 ML ONE (18:57)
--- NOTE | 2024-04-11 19:04 | ERPHSYRPT ---
- History of Present Illness Time Seen by Provider: 04/11/24 17:21 Source: patient Exam Limitations: no limitations Patient Subjective Stated Complaint: diarrhea x 4 days, muscle spasms x 4 days, vomiting last night Triage Nursing Assessment: Pt presents to ED bed 8 via WC. Assisted into bed and changed into gown. VSS on RA. C?o muscle spasms and diarrhea x 4 days, vomiting since last night. Obviously muscle twitching noted in arms and legs. States the twitching is constant. Muscles ache/hurt d/t constant twitching. Denies chest pain or new/worsening SOB. C/o headahce x 2 days. NSR noted on EKG. Skin pale, warm, and dry. Physician History: 64 years old male with history of hypertension, hyperlipidemia, diabetes mellitus, COPD with chronic respiratory failure on 3 L oxygen, chronic back pain presented in the ER with complaint of increasing muscle spasms for the last 4 days. Patient report he is having loose stool for the last 4 days and also having multiple episodes of nonprojectile, nonbilious vomiting since yesterday. Minimal abdominal pain. Patient reports having history of muscle spasm in the past which usually get better with Flexeril but he has not taken it in last 4 days but wants. Denies any fever or chills. Denies any chest pain palpitations or shortness of breath but what he has at his baseline. Complaining of generalized weakness fatigue tiredness and lack of energy. Allergies/Adverse Reactions: No Known Drug Allergies Allergy (Verified 10/13/22 17:38) Home Medications: Budesonide/Formoterol Fumarate [Symbicort 160-4.5 Mcg Inhaler] 1 puff IN DAILY 11/22/18 [History] Gabapentin 800 mg PO TID 11/22/18 [History] Lisinopril/Hydrochlorothiazide [Lisinopril-Hctz 20-25 mg Tab] 1 tab PO DAILY 11/22/18 [History] Metformin HCl [Glucophage] 1,000 mg PO BID 11/22/18 [History] Simvastatin 20 mg PO DAILY 11/22/18 [History] glipiZIDE [Glipizide] 5 mg PO BID 11/22/18 [History] Albuterol 2.5 mg/3 ml Neb [Proventil 2.5 mg/3 ml Neb] 2.5 mg IH DAILY PRN PRN 03/01/22 [History] Cyclobenzaprine HCl 10 mg [Cyclobenzaprine 10 MG] 10 mg PO DAILY 03/01/22 [History] Duloxetine HCl 30 mg [Cymbalta 30 MG Capsule] 30 mg PO DAILY 03/01/22 [History] Hx Tetanus, Diphtheria Vaccination/Date Given: Yes Hx Influenza Vaccination/Date Given: No Hx Pneumococcal Vaccination/Date Given: No Travel Risk - International Travel Have you traveled outside of the country in past 3 weeks: No - Review of Systems Constitutional: Fatigue, Weakness Eyes: No Symptoms Ears, Nose, & Throat: No Symptoms Respiratory: Cough, Dyspnea, Dyspnea on Exertion (BOYD) Cardiac: No Symptoms Abdominal/Gastrointestinal: Abdominal Pain, Nausea, Vomiting, Diarrhea Genitourinary Symptoms: No Symptoms Musculoskeletal: Back Pain Skin: No Symptoms Neurological: No Symptoms Psychological: No Symptoms Endocrine: No Symptoms Hematologic/Lymphatic: No Symptoms Immunological/Allergic: No Symptoms - Past Medical History Pertinent Past Medical History: Yes Cardiac History: High Cholesterol, Hypertension Respiratory History: COPD Endocrine Medical History: Diabetes Type II Psycho-Social History: Anxiety, Bipolar, Depression, Panic Disorder Other Medical History: neuropathy - Past Surgical History Past Surgical History: No Neuro Surgical History: No Pertinent History Cardiac: No Pertinent History Respiratory: No Pertinent History Gastrointestinal: No Pertinent History Genitourinary: No Pertinent History Musculoskeletal: No Pertinent History Male Surgical History: No Pertinent History Significant Family History: no pertinent family hx - Social History Smoking Status: Never smoker Exposure to second hand smoke: Yes Drug Use: none Patient Lives Alone: Yes - Nursing Vital Signs Nursing Vital Signs: Initial Vital Signs Temperature 97.1 F 04/11/24 17:24 Pulse Rate 85 04/11/24 17:24 Respiratory Rate 18 04/11/24 17:24 Blood Pressure 127/104 04/11/24 17:24 O2 Sat by Pulse Oximetry 94 L 04/11/24 17:24 Pain Scale Pain Intensity 10 - Physical Exam General Appearance: no apparent distress, alert, anxiety Eye Exam: PERRL/EOMI Ears, Nose, Throat Exam: normal ENT inspection Neck Exam: normal inspection, full range of motion Respiratory Exam: normal breath sounds, lungs clear Cardiovascular Exam: regular rate/rhythm, normal heart sounds Gastrointestinal/Abdomen Exam: soft, normal bowel sounds, tenderness (Minimal tenderness to deep palpation) Back Exam: normal inspection, normal range of motion Extremity Exam: normal inspection, normal range of motion Neurologic Exam: alert, oriented x 3, cooperative, steel fixer II-XII nml as tested, nml cerebellar function, sensation nml, No normal mood/affect (Anxious), No motor deficits Skin Exam: normal color SpO2 Interpretation: O2 applied SpO2: 94 O2 Delivery: Nasal Cannula Procedures - Central Line Time Of Procedure: 20:20 Timeout: Performed Central Line Lumen: single Lumen Size: 7 Occitan Central Line Procedure: chlorahexadine prep, sterile drapes applied, sterile dressing applied, Aseptic Technique, Seldinger Technique Central Line Postion: femoral (R) Anesthesia: 1% Lidocaine cc's of anesthesia: 3 Ultrasound Guided Placement: Yes Complications: none Central Line Post Position: sutured, good blood return Ordered Tests: Medication Summary Discontinued Medications Generic Name Dose Route Start Last Admin Trade Name Freq PRN Reason Stop Dose Admin Albuterol/Ipratropium 3 ml 04/11/24 17:36 04/11/24 18:06 Ipratropium/Albuterol Sulfate 3 Ml Ampul.Neb IH 04/11/24 17:37 Not Given STAT ONE Calcium Gluconate Confirm 04/11/24 19:20 Calcium Gluconate 1000 Mg/10 Ml Vial Administered 04/11/24 19:21 Dose 1,000 mg IV .STK-MED ONE Methylprednisolone Sodium 0 mg 04/11/24 17:36 04/11/24 18:06 Succinate 125 mg/ Sterile IV 04/11/24 17:37 Not Given Water 2 ml STAT ONE Dextrose 50 ml 04/11/24 22:50 04/11/24 22:53 Dextrose 50%-Water 50 Ml Abboject IV 04/11/24 22:51 50 ml STAT ONE Administration Dextrose Confirm 04/11/24 22:52 Dextrose 50%-Water 50 Ml Abboject Administered 04/11/24 22:53 Dose 50 ml IV .STK-MED ONE Dextrose Confirm 04/11/24 23:34 Dextrose 50%-Water 50 Ml Abboject Administered 04/11/24 23:35 Dose 50 ml IV .STK-MED ONE Dextrose 50 ml 04/11/24 23:35 04/11/24 23:41 Dextrose 50%-Water 50 Ml Abboject IV 04/11/24 23:36 50 ml STAT ONE Administration Sodium Chloride 1,000 mls @ 999 mls/hr 04/11/24 18:51 04/11/24 20:32 Sodium Chloride 0.9% 1000 Ml IV 04/11/24 19:51 Infused .Q1H1M STA Infusion Sodium Chloride Confirm 04/11/24 18:57 Sodium Chloride 0.9% 1000 Ml Administered 04/11/24 18:58 Dose 2,000 mls @ ud .ROUTE .STK-MED ONE Sodium Chloride 1,000 mls @ 999 mls/hr 04/11/24 18:59 04/11/24 22:35 Sodium Chloride 0.9% 1000 Ml IV 04/11/24 19:59 Infused .Q1H1M STA Infusion Calcium Gluconate 1,000 mg/ 110 mls @ 220 mls/hr 04/11/24 19:01 04/11/24 19:26 Sodium Chloride IV 04/11/24 19:30 220 mls/hr ONCE ONE Administration Sodium Chloride Confirm 04/11/24 19:21 Sodium Chloride 0.9% Administered 04/11/24 19:22 Dose 100 mls @ ud .ROUTE .STK-MED ONE Sodium Chloride 1,000 mls @ 125 mls/hr 04/11/24 21:30 04/11/24 22:30 Sodium Chloride 0.9% 1000 Ml IV 05/11/24 21:29 125 mls/hr .Q8H MARIELLE Infusion Ampicillin Sodium/Sulbactam 100 mls @ 200 mls/hr 04/11/24 21:30 04/11/24 21:54 Sodium 1.5 g/ Sodium Chloride IV 04/11/24 21:59 200 mls/hr STAT ONE Administration Sodium Chloride 500 mls @ 999 mls/hr 04/11/24 22:38 04/11/24 23:29 Sodium Chloride 0.9% 500 Ml IV 04/11/24 23:08 Infused .Q31M ONE Infusion Sodium Chloride Confirm 04/11/24 22:37 Sodium Chloride 0.9% 500 Ml Administered 04/11/24 22:38 Dose 500 mls @ ud IV .STK-MED ONE Dextrose 250 mls @ 50 mls/hr 04/11/24 23:45 04/11/24 23:41 Dextrose 10% 250 Ml IV 05/11/24 23:44 50 mls/hr .Q5H MARIELLE Administration Protocol Sodium Chloride Confirm 04/11/24 21:27 Sodium Chloride 0.9% 1000 Ml Administered 04/11/24 21:28 Dose 1,000 mls @ ud .ROUTE .STK-MED ONE Dextrose Confirm 04/11/24 23:36 Dextrose 10% 250 Ml Administered 04/11/24 23:37 Dose 250 mls @ ud IV .STK-MED ONE Orphenadrine Citrate 60 mg 04/11/24 17:55 04/11/24 18:11 Orphenadrine Citrate 60 Mg/2 Ml Vial IV 04/11/24 17:56 60 mg STAT ONE Administration Orphenadrine Citrate Confirm 04/11/24 18:08 Orphenadrine Citrate 60 Mg/2 Ml Vial Administered 04/11/24 18:09 Dose 60 mg .ROUTE .STK-MED ONE Orphenadrine Citrate Confirm 04/11/24 18:10 Orphenadrine Citrate 60 Mg/2 Ml Vial Administered 04/11/24 18:11 Dose 60 mg .ROUTE .STK-MED ONE Lab/Rad Data: Laboratory Result Diagrams 04/11/24 18:17 04/11/24 18:17 Laboratory Results 04/11/24 04/11/24 04/11/24 Range/Units 23:33 22:50 22:17 WBC (4.23-9.07) x10^3/uL RBC (4.63-6.08) x10^6/uL Hgb (13.7-17.5) g/dL Hct (40.1-51.0) % MCV (79.0-92.2) fL MCH (25.7-32.2) pg MCHC (32.3-36.5) g/dL RDW (11.6-14.4) % Plt Count (163-337) x10^3/uL MPV (9.4-12.4) fL Gran % (34.0-67.9) % Lymphocytes % (21.8-53.1) % Monocytes % (5.3-12.2) % Eosinophils % (0.8-7.0) % Basophils % (0.2-1.2) % Band Neutrophils (0.0-2.0) % Metamyelocytes % Platelet Estimate (NORMAL) RBC Morphology pO2/FiO2 Ratio % VBG pH (7.32-7.42) VBG pCO2 at Pat Temp (42-55) mm/Hg VBG pO2 at Pat Temp (25-40) mm/Hg VBG HCO3 (22-28) meq/L VBG O2 Sat (Evelyn) (95-100) VBG Base Excess (-2.0-2.0) VBG Hemoglobin VBG Carboxyhemoglobin (0.0-6.9) % T HGB POC Potassium (3.5-5.1) Sodium (135-145) mmol/L Potassium (3.5-5.1) mmol/L Chloride (98-107) mmol/L Carbon Dioxide (22-30) mmol/L Anion Gap (5-15) MEQ/L BUN (9-20) mg/dL Creatinine (0.66-1.25) mg/dL Estimated GFR ML/MIN Glucose (74-106) mg/dL POC Glucometer 46 L* 47 L* (74 to 106) mg/dL Lactic Acid (0.4-2.0) Calcium (8.4-10.2) mg/dL Magnesium (1.6-2.3) mg/dL Total Bilirubin (0.2-1.3) mg/dL AST (17-59) U/L ALT (0-50) U/L Alkaline Phosphatase (38-126) U/L Troponin I < 0.012 (0.000-0.033) ng/mL NT-Pro-B Natriuret Pep (<300) pg/mL Serum Total Protein (6.3-8.2) g/dL Albumin (3.5-5.0) g/dL Lipase (23-300) U/L 04/11/24 04/11/24 04/11/24 Range/Units 22:10 18:17 18:17 WBC (4.23-9.07) x10^3/uL RBC (4.63-6.08) x10^6/uL Hgb (13.7-17.5) g/dL Hct (40.1-51.0) % MCV (79.0-92.2) fL MCH (25.7-32.2) pg MCHC (32.3-36.5) g/dL RDW (11.6-14.4) % Plt Count (163-337) x10^3/uL MPV (9.4-12.4) fL Gran % (34.0-67.9) % Lymphocytes % (21.8-53.1) % Monocytes % (5.3-12.2) % Eosinophils % (0.8-7.0) % Basophils % (0.2-1.2) % Band Neutrophils (0.0-2.0) % Metamyelocytes % Platelet Estimate (NORMAL) RBC Morphology pO2/FiO2 Ratio % VBG pH (7.32-7.42) VBG pCO2 at Pat Temp (42-55) mm/Hg VBG pO2 at Pat Temp (25-40) mm/Hg VBG HCO3 (22-28) meq/L VBG O2 Sat (Evelyn) (95-100) VBG Base Excess (-2.0-2.0) VBG Hemoglobin VBG Carboxyhemoglobin (0.0-6.9) % T HGB POC Potassium (3.5-5.1) Sodium (135-145) mmol/L Potassium (3.5-5.1) mmol/L Chloride (98-107) mmol/L Carbon Dioxide (22-30) mmol/L Anion Gap (5-15) MEQ/L BUN (9-20) mg/dL Creatinine (0.66-1.25) mg/dL Estimated GFR ML/MIN Glucose (74-106) mg/dL POC Glucometer (74 to 106) mg/dL Lactic Acid 0.9 (0.4-2.0) Calcium (8.4-10.2) mg/dL Magnesium (1.6-2.3) mg/dL Total Bilirubin (0.2-1.3) mg/dL AST (17-59) U/L ALT (0-50) U/L Alkaline Phosphatase (38-126) U/L Troponin I < 0.012 (0.000-0.033) ng/mL NT-Pro-B Natriuret Pep 451 (<300) pg/mL Serum Total Protein (6.3-8.2) g/dL Albumin (3.5-5.0) g/dL Lipase (23-300) U/L 04/11/24 04/11/24 04/11/24 Range/Units 18:17 18:17 17:51 WBC 6.8 (4.23-9.07) x10^3/uL RBC 3.95 L (4.63-6.08) x10^6/uL Hgb 12.6 L (13.7-17.5) g/dL Hct 36.7 L (40.1-51.0) % MCV 92.9 H (79.0-92.2) fL MCH 31.9 (25.7-32.2) pg MCHC 34.3 (32.3-36.5) g/dL RDW 13.5 (11.6-14.4) % Plt Count 230 (163-337) x10^3/uL MPV 10.6 (9.4-12.4) fL Gran % 63.0 (34.0-67.9) % Lymphocytes % 15.0 L (21.8-53.1) % Monocytes % 12.0 (5.3-12.2) % Eosinophils % 0.0 L (0.8-7.0) % Basophils % 0.0 L (0.2-1.2) % Band Neutrophils 9 H (0.0-2.0) % Metamyelocytes 1 % Platelet Estimate NORMAL (NORMAL) RBC Morphology NORMAL pO2/FiO2 Ratio % VBG pH (7.32-7.42) VBG pCO2 at Pat Temp (42-55) mm/Hg VBG pO2 at Pat Temp (25-40) mm/Hg VBG HCO3 (22-28) meq/L VBG O2 Sat (Evelyn) (95-100) VBG Base Excess (-2.0-2.0) VBG Hemoglobin VBG Carboxyhemoglobin (0.0-6.9) % T HGB POC Potassium (3.5-5.1) Sodium 134 L (135-145) mmol/L Potassium 4.5 (3.5-5.1) mmol/L Chloride 90 L (98-107) mmol/L Carbon Dioxide 17 L (22-30) mmol/L Anion Gap 31.1 H (5-15) MEQ/L BUN 115 H (9-20) mg/dL Creatinine 9.25 H (0.66-1.25) mg/dL Estimated GFR 5.9 ML/MIN Glucose 111 H (74-106) mg/dL POC Glucometer (74 to 106) mg/dL Lactic Acid 2.1 H (0.4-2.0) Calcium 7.0 L (8.4-10.2) mg/dL Magnesium 2.1 (1.6-2.3) mg/dL Total Bilirubin 1.10 (0.2-1.3) mg/dL AST 16 L (17-59) U/L ALT 15 (0-50) U/L Alkaline Phosphatase 125 (38-126) U/L Troponin I (0.000-0.033) ng/mL NT-Pro-B Natriuret Pep (<300) pg/mL Serum Total Protein 5.7 L (6.3-8.2) g/dL Albumin 3.2 L (3.5-5.0) g/dL Lipase (23-300) U/L 04/11/24 04/11/24 04/11/24 Range/Units 17:45 17:40 17:25 WBC (4.23-9.07) x10^3/uL RBC (4.63-6.08) x10^6/uL Hgb (13.7-17.5) g/dL Hct (40.1-51.0) % MCV (79.0-92.2) fL MCH (25.7-32.2) pg MCHC (32.3-36.5) g/dL RDW (11.6-14.4) % Plt Count (163-337) x10^3/uL MPV (9.4-12.4) fL Gran % (34.0-67.9) % Lymphocytes % (21.8-53.1) % Monocytes % (5.3-12.2) % Eosinophils % (0.8-7.0) % Basophils % (0.2-1.2) % Band Neutrophils (0.0-2.0) % Metamyelocytes % Platelet Estimate (NORMAL) RBC Morphology pO2/FiO2 Ratio 21.0 % VBG pH 7.25 L (7.32-7.42) VBG pCO2 at Pat Temp 46 (42-55) mm/Hg VBG pO2 at Pat Temp 34 (25-40) mm/Hg VBG HCO3 20.2 L (22-28) meq/L VBG O2 Sat (Evelyn) 64.0 L (95-100) VBG Base Excess -7.0 L (-2.0-2.0) VBG Hemoglobin 13.3 VBG Carboxyhemoglobin 2.5 (0.0-6.9) % T HGB POC Potassium 4.8 (3.5-5.1) Sodium (135-145) mmol/L Potassium (3.5-5.1) mmol/L Chloride (98-107) mmol/L Carbon Dioxide (22-30) mmol/L Anion Gap (5-15) MEQ/L BUN (9-20) mg/dL Creatinine (0.66-1.25) mg/dL Estimated GFR ML/MIN Glucose (74-106) mg/dL POC Glucometer 73 L (74 to 106) mg/dL Lactic Acid (0.4-2.0) Calcium (8.4-10.2) mg/dL Magnesium (1.6-2.3) mg/dL Total Bilirubin (0.2-1.3) mg/dL AST (17-59) U/L ALT (0-50) U/L Alkaline Phosphatase (38-126) U/L Troponin I (0.000-0.033) ng/mL NT-Pro-B Natriuret Pep (<300) pg/mL Serum Total Protein (6.3-8.2) g/dL Albumin (3.5-5.0) g/dL Lipase 36 (23-300) U/L - Progress Progress: unchanged Progress Note: 04/11/24 20:40 64-year-old is evaluated in the ER for muscle spasms all over especially in lower extremities. Patient is having diarrhea for the last few days and nausea vomiting yesterday. Abdominal exam is soft with minimal tenderness to deep palpation. He is given Norflex for symptomatic relief. EKG is sinus rhythm with no ST elevations. Chest x-ray negative for any acute cardiopulmonary findings reviewed by me, official report is pending. Has normal white count and chemistries with a creatinine of 9.25/BUN 115 and potassium of 4.5/calcium 7.0. Patient does have some twitching of muscles. He is given fluid boluses along with a dose of calcium gluconate. Patient was a hard stick and central line is placed. Patient blood pressure dropped in 60s but improved to low 100s. I have obtained CT abdomen pelvis without contrast which showed mild diffuse colitis/proctitis and distended gallbladder without stones. No obstruction perforation/free air noticed. Given a dose of Unasyn. I have discussed with Dr. Raines nephrology at [facility], reviewed history, workup, agreed with transfer to hospitalist service and nephrology would be consult. I have discussed with [facility] transfer center and patient is excepted on behalf of Dr. Guzman in the ER. 04/11/24 23:38 Patient blood pressure is still in 80s after multiple boluses. His blood sugars dropping in 40s, given D50 and upon recheck later it dropped again in 40s and given another D50. Patient I believe it is secondary to oral hypoglycemic which patient is on and having renal failure, patient will be restarted on D10. Counseled pt/family regarding: lab results, diagnosis, need for follow-up, rad results Medical Desision Making - Independent Historian Additional History obtained from: Relative/friend - Discussion of managment Care discussed with:: specialist (Dr. Raines direct support professional home health [facility], Dr. Guzman ER) Reviewed:: Test results Agreed on:: Treatment plan, decision to admit Will see patient: in ED - Diagnostic Testing Diagnostic test were ordered, analyzed, and reviewed by me: Yes Radiological Interpretation: Interpreted by me, Reviewed by me, Teleradiologist Report - Risk of complications The pt has a mod risk of morbidity or mortality based on: Need for prescription drug management The pt has a high risk of morbidity or mortality based on: Decision regarding hospitilization or escalation of hosp level of care - Departure Departure Disposition: Transfer Clinical Impression: Acute renal failure (ARF), Dehydration, Infectious colitis, Hypocalcemia, H ypoglycemia Condition: Stable Critical Care Time: Yes Critical Care Time(excluding separately billable procedures): Critical 30-74 mins Referrals: Provider,Unknown [NON-STAFF PHY W/O PRIVILEGES] - Follow up/PCP as directed
[2024-04-11] MEDS: Sodium Chloride 0.9% 1000 ML 1,000 ML IV STA ×2 (19:11→20:15)
[2024-04-11] MEDS ORDERED: Calcium Gluconate 10% 1000 MG IV ONE (19:20)
[2024-04-11] MEDS ORDERED: Sodium Chloride 0.9% 100 ML ONE (19:21)
[2024-04-11] MEDS: Calcium Gluconate 10% 1000 MG 1,000 MG in Sodium Chloride 0.9% 100 ML IV ONE (19:26)
--- NOTE | 2024-04-11 19:35 | XRAY ---
Indication: Short of breath. Comparison: October 15, 2022 Portable chest now demonstrates minimal left lung base subsegmental atelectasis/scarring. Remaining heart and right lung unremarkable. Bony thorax intact again with mild dextroscoliosis. Impression: Nonacute chest with chronic features.
[2024-04-11] MEDS ORDERED: Sodium Chloride 0.9% 1000 ML 1,000 ML ONE (21:27)
[2024-04-11] MEDS: Sodium Chloride 0.9% 1000 ML 1,000 ML IV SCH (21:30)
[2024-04-11] MEDS: Unasyn 1.5GM Vial*** 1.5 G in Sodium Chloride 0.9% 100 ML IV ONE (21:54)
[2024-04-11] MEDS ORDERED: Sodium Chloride 0.9% 500 ML 500 ML IV ONE (22:37)
[2024-04-11] MEDS ORDERED: D50W 50 ml Abboject IV ONE ×2 (22:52→23:34)
[2024-04-11] MEDS: D50W 50 ml Abboject IV ONE ×2 (22:53→23:41)
[2024-04-11] MEDS: Sodium Chloride 0.9% 500 ML 500 ML IV ONE (22:53)
[2024-04-11 23:22] VITALS: RESP 20
[2024-04-11] MEDS ORDERED: DEXTROSE 10% 250 ML 250 ML IV ONE (23:36)
[2024-04-11] MEDS: DEXTROSE 10% 250 ML 250 ML IV SCH (23:41)
[2024-04-11 23:51] VITALS: BP 73/45; PULSE 86
--- NOTE | 2024-04-12 08:41 | XRAY ---
Indication: Diarrhea. Renal failure. Multiple contiguous axial images obtained through the abdomen and pelvis without contrast. Comparison: None Lung bases degraded by respiration artifact. No focal infiltrate or large effusion. Heart not enlarged. Noncontrasted stomach and bowel loops appear nonobstructed with normal appendix. Distal transverse, entire descending, sigmoid, and rectum demonstrates mild/moderate circumferential wall thickening with stranding favoring colitis/proctitis. No free fluid/air. Gallbladder moderately distended without gallstones or biliary distention. Right kidney demonstrate nonobstructed punctate calculus. Left lower kidney demonstrates 1.7 cm exophytic cyst. Remaining liver, gallbladder, pancreas, spleen, adrenal glands, kidneys, ureters, and bladder are unremarkable for noncontrast exam. Mild scattered aortoiliac calcifications. Distal abdominal aorta demonstrates 3.2 cm saccular calcified aneurysm. Incidental right inguinal central venous access catheter with tip in the right iliac vein. Osseous structures intact with mild/moderate degenerative changes throughout the spine and mild levoscoliosis centered at L2 small bilateral fatty inguinal hernias. Impression: 1. Abnormal colonic bowel wall thickening and stranding as detailed favoring colitis/proctitis. No free fluid/air. 2. Abnormal distended gallbladder. Sonogram may yield further information if clinically warranted. 3. Chronic findings including nonobstructing right renal punctate calculus, small left renal cyst, arteriosclerotic disease with saccular aortic aneurysm, chronic bony findings, and old granulomatous disease.
[2024-04-15 00:13] VITALS: O2SAT 94
== END 2024-04-11 23:51 | disposition short-term general hospital (02) ==
LOC: ED 17:15
DX: N17.9 Acute kidney failure, unspecified (principal); E86.0 Dehydration; A09 Infectious gastroenteritis and colitis, unspecified; E83.51 Hypocalcemia; E11.649 Type 2 diabetes mellitus with hypoglycemia without coma; I95.9 Hypotension, unspecified; R11.2 Nausea with vomiting, unspecified; M62.838 Other muscle spasm; I10 Essential (primary) hypertension; E78.5 Hyperlipidemia, unspecified; Z79.84 Long term (current) use of oral hypoglycemic drugs; Z79.899 Other long term (current) drug therapy
CPT/HCPCS: 36000; 36415; 36556; 71045; 74176; 80053; 82805; 82947; 83605; 83690; 83735; 83880; 84484; 85025; 87040; 93005; 93041; 96360; 96361; 96365; 96367; 96374; 96375; 96376; 99285; 99291; C1751; J0295; J0612; J2360